=== PATIENT | female | born 1940 | race Caucasian/White ===

== ENCOUNTER 2021-05-22 14:53 | Emergency (ER) | payer OTHER, MEDICAID ==
[~2021-05-22] VITALS: Ht 162.6 cm; Wt 77.1 kg
[2021-05-22 14:56] VITALS: BP 148/70
--- NOTE | 2021-05-22 15:10 | NUR ---
80 Y/O F BIBA FROM [facility], PT PRESENTS WITH R HAND 3RD DIGIT PAIN AFTER RING WAS CUT. PT HAS SWELLING AND BRUISING ON SITE. PT HAS ANOTHER RING ON L HAND THAT IS ALSO HAVING SWELLING. FACILITY WOULD LIKE TO R/O FX. PT IS NORMALLY A&OX2. PT IS SITTING COMFORTABLY IN BED WITH RAILS UP X2 WITH BED IN LOWEST SETTING. PMH: FAILURE TO THRIVE, DEMENTIA, A FIB, LYMPHEDEDEMA, HTN, IBS ALLERGY: POULTRY MED: SEE LIST
--- NOTE | 2021-05-22 15:32 | NUR ---
[facility] AT BEDSIDE
--- NOTE | 2021-05-22 16:36 | NUR ---
ATTEMPTED TO CONTACT DAUGHTER TO ARRANGE FOR TRANSPORT. MESSAGE LEFT WITH CONTACT NUMBER.
--- NOTE | 2021-05-22 17:09 | NUR ---
CALLED [facility], GAVE REPORT TO DEION, MADE AWARE TRANSPORT WILL BE COMING TO [facility] AT APPROXIMATELY 1900
--- NOTE | 2021-05-22 19:20 | NUR ---
Pt report given to DELORES GANDHI. Transfer of care at this time.
[2021-05-22 19:54] VITALS: BP 169/70
--- NOTE | 2021-05-22 20:26 | NUR ---
Patient appears to be resting comfortably in bed. Vital Signs within normal limits. Respirations even and unlabored. BOTH BED RAILS UP AND BED AT LOWEST POSITION.
--- NOTE | 2021-05-22 20:45 | NUR ---
[facility]SP[facility] AT BEDSIDE
--- NOTE | 2021-05-22 20:47 | NUR ---
Patient discharged with v/s stable. Written and verbal after care instructions ABOUT FINGER SPRAIN given and explained. Patient verbalized understanding. Ambulance Transport with to [facility]. All questions addressed prior to discharge. Advised to follow up with PMD.
== END 2021-05-22 20:47 | disposition home or self-care (01) ==
LOC: MED 14:53 → EDBD 14:53 → MED 20:47
DX: S63.612A Unspecified sprain of right middle finger, initial encounter (principal); I10 Essential (primary) hypertension; F03.90 Unspecified dementia, unspecified severity, without behavioral disturbance, psychotic disturbance, mood disturbance, and anxiety; Z88.8 Allergy status to other drugs, medicaments and biological substances; X58.XXXA Exposure to other specified factors, initial encounter; Y93.89 Activity, other specified; Y92.89 Other specified places as the place of occurrence of the external cause; Y99.8 Other external cause status
CPT/HCPCS: 73140; 99283; Q0092